=== PATIENT | female | born 1980 | race Caucasian/White ===

== ENCOUNTER 2016-11-18 11:44 | Outpatient (CLI) | payer OTHER ==
--- NOTE | 2016-11-19 06:59 | Diagnostic Imaging Report ---
GEOFF RICHARDSON~ [facility] [address] [facility].[address] [address] ~ ~ ~ ~ Report Submission Date: Nov 18, 2016 12:35:25 PM CDT Patient ~ Study Name: ALEXSANDER RUTLEDGE ~ Date: Nov 18, 2016 12:00:24 PM CDT ~ Modality Type: US Gender: F ~ Description: US RETROPERITONEAL LIMIT : 84 ~ Institution: [facility] Physician: GEOFF RICHARDSON ~ ~ ~ ~ Examination: Ultrasound kidneys History: Comparison exams: Findings: Right kidney measures 9.9 cm in length. Left kidney measures 10.7 cm in length. No evidence for cortical mass bilaterally. Right kidney demonstrates a 4 mm echogenic foci with posterior shadowing. Left kidney demonstrates a 4 mm echogenic structure within the inferior pole with posterior shadowing Impression: Bilateral renal calculi. No obstruction. No cortical mass/lesion. ~ Electronically signed on Nov 18, 2016 12:35:25 PM CDT by: Burke VILLAFUERTE
== END 2016-11-18 11:45 ==
LOC: RAD 11:44
PROVIDERS: ATTEND Family Medicine
DX: N20.0 Calculus of kidney (principal)
CPT/HCPCS: 76775

== ENCOUNTER 2016-11-23 14:41 | Outpatient (CLI) | payer OTHER ==
--- NOTE | 2016-11-23 15:18 | Diagnostic Imaging Report ---
[facility] [address] [facility] [address] [place], [place]. [address] Report Submission Date: Nov 23, 2016 3:15:13 PM CDT Patient Study Name: ALEXSANDER RUTLEDGE Date: Nov 23, 2016 2:49:30 PM CDT Modality Type: CT\SR Gender: F Description: CT ABD & PELVIS W/O CO : 84 Institution: [facility] Physician: ES FISCHER Examination: CT Abdomen/pelvis History: Right flank discomfort Comparison exams: None available Technique: CT Abdomen/pelvis without contrast protocol. Findings: Renal cortical margins are symmetric. Bilateral calyceal calcifications. Ureters described a normal course through the abdomen and pelvis. No abnormal dilation. No central calcifications. Ureterovesicular junctions are within normal limits. Pelvic phleboliths. Liver, spleen, adrenals, gallbladder and pancreas are without gross irregularity. Bowel unopacified limiting evaluation. Very mild inflammatory changes at the ileocecal valve. Prior hysterectomy. No mesenteric inflammatory changes or free fluid. Osseous structures demonstrate mild degenerative changes. Lung bases without infiltrate. Impression: Bilateral nephrolithiasis. No ureterolithiasis. Possible very mild inflammatory changes at the ileocecal valve. Exam was performed without contrast which limits sensitivity. Correlate with patient's symptomatology. Electronically signed on Nov 23, 2016 3:15:13 PM CDT by: Burke VILLAFUERTE
== END 2016-11-23 14:42 ==
LOC: RAD 14:41
PROVIDERS: ATTEND Physician Assistant
DX: R10.9 Unspecified abdominal pain (principal); R11.2 Nausea with vomiting, unspecified
CPT/HCPCS: 74176

== ENCOUNTER 2017-02-22 14:29 | Outpatient (CLI) | payer OTHER ==
[2017-02-22 15:15] LABS: eGFR (African) > 60; eGFR (Non-African) > 60
--- NOTE | 2017-02-22 16:49 | Diagnostic Imaging Report ---
[facility] [address] [facility].[address] [address] Report Submission Date: Feb 22, 2017 3:17:51 PM CDT Patient Study Name: ALEXSANDER RUTLEDGE Date: Feb 22, 2017 2:52:26 PM CDT Modality Type: CR Gender: F Description: CHEST : 84 Institution: [facility] Physician: GEOFF RICHARDSON - OP Examination: PA and lateral chest. History: Evaluate lung miller. Comparison exam: None provided Findings: PA lateral chest demonstrate a normal cardiac and mediastinal silhouette. Minimal haziness right middle lung. No other consolidation or effusion identified. No blunting of the costophrenic margins. Osseous structures are appropriate for age. Impression: Mild right middle lobe hazy infiltrate. No effusion. Electronically signed on Feb 22, 2017 3:17:51 PM CDT by: Burke VILLAFUERTE
== END 2017-02-22 14:30 ==
LOC: RT 14:29
PROVIDERS: ATTEND Family Medicine
DX: R00.2 Palpitations (principal); R07.9 Chest pain, unspecified
CPT/HCPCS: 36415; 71020; 80053; 84439; 84443; 84481; 85379

== ENCOUNTER 2017-07-08 12:30 | Outpatient (CLI) | payer OTHER ==
[2017-07-08 12:53] LABS: BASOPHILS % 0.6 (0.0-1.5); EOSINOPHILS % 1.2 % (0.0-6.8); MEAN CORPUSCULAR HEMOGLOBIN 29.2 pg (28.0-34.0); MEAN CORPUSCULAR VOLUME 87.6 fl (80.0-100.0); MONOCYTES % 2.6 % (0.0-11.0); NEUTROPHILS # 4.9 # k/uL (1.4-7.7)
[2017-07-08 13:15] LABS: eGFR (African) > 60; eGFR (Non-African) > 60
--- NOTE | 2017-07-08 15:30 | Diagnostic Imaging Report ---
SAMUEL SOUZA [facility] [address] [facility] [address] [place] [address]. [address] Report Submission Date: Jul 08, 2017 1:14:58 PM FILM CREW MEMBER Patient Study Name: ALEXSANDER RUTLEDGE Date: Jul 08, 2017 12:51:49 PM FILM CREW MEMBER Modality Type: CR Gender: F Description: CHEST : 84 Institution: [facility] Physician: SAMUEL SOUZA Examination: PA and lateral chest. History: PATIENT STATES SHARP CHEST PAINS RANDOMLY SINCE APR 2017 WITH OCCASSIONALY COUGH (Hx) / COUGH HX OF PNEUMONIA IN 2017 (DICOM Hx) / COUGH HX OF PNEUMONIA IN 2017 (Pt comments) Comparison exam: 22 February 2017 Findings: PA lateral chest demonstrate a normal cardiac and mediastinal silhouette. No focal infiltrate. No blunting of the costophrenic margins. Osseous structures are appropriate for age. Impression: No acute pulmonary process. Electronically signed on Jul 08, 2017 1:14:58 PM FILM CREW MEMBER by: Burke VILLAFUERTE
== END 2017-07-08 12:32 ==
LOC: LAB 12:30
PROVIDERS: ATTEND Physician Assistant
DX: R05 Cough (principal); R07.9 Chest pain, unspecified; Z87.01 Personal history of pneumonia (recurrent)
CPT/HCPCS: 71046; 80053; 85025

== ENCOUNTER 2017-09-13 12:28 | Outpatient (CLI) | payer OTHER ==
[2017-09-13 12:43] LABS: BASOPHILS % 0.7 (0.0-1.5); EOSINOPHILS % 1.7 % (0.0-6.8); MEAN CORPUSCULAR HEMOGLOBIN 29.7 pg (28.0-34.0); MEAN CORPUSCULAR VOLUME 86.5 fl (80.0-100.0); NEUTROPHILS # 4.6 # k/uL (1.4-7.7)
[2017-09-13 13:13] LABS: eGFR (Non-African) > 60
== END 2017-09-13 12:30 ==
LOC: LAB 12:28
PROVIDERS: ATTEND Physician Assistant
DX: R11.10 Vomiting, unspecified (principal)
CPT/HCPCS: 36415; 80053; 83690; 85025

== ENCOUNTER 2018-07-18 13:58 | Outpatient (CLI) | payer OTHER ==
--- NOTE | 2018-07-18 14:44 | Diagnostic Imaging Report ---
CARINA MADDOX [facility] [address] [facility] [address] [place] [address]. [id number] Report Submission Date: Jul 18, 2018 2:34:07 PM TRUCKMAN Patient Study Name: ALEXSANDER RUTLEDGE Date: Jul 18, 2018 2:05:00 PM TRUCKMAN Modality Type: CT\SR Gender: F Description: RENAL STONE : 84 Institution: [facility] Physician: CARINA MADDOX Exam: CT abdomen and pelvis without contrast. History: Right flank pain. History of renal stones. Axial images through the abdomen and pelvis without oral or IV contrast is submitted along with sagittal and coronal reformatted images. The visualized lower lung miller are clear without fidel consolidation or effusion. No free intraperitoneal air is identified. The liver, spleen and pancreas appear normal in attenuation. The adrenal glands are normal configuration. The abdominal aorta is of normal caliber. Is difficult to exclude periaortic lymphadenopathy without contrast material. Scattered punctate renal stones are seen in both renal collecting systems. However, no hydronephrosis or hydroureter is identified. No fidel ureteral stones are identified. Urinary bladder is contracted. No intrinsic filling defects are identified. The uterus appears to be retroverted and inhomogeneous in attenuation suggesting a myomatous uterus. A small amount of free cul-de-sac fluid is identified. Small cystic structure in the right adnexa may represent an ovarian cyst. The small bowel is of normal caliber. Air and stool seen throughout the large intestine. No inflammatory changes to the mesentery or ascites is identified. No bony abnormalities are identified. Impression: Small bilateral nonobstructing renal stones are identified. Retroverted uterus with some free cul-de-sac fluid identified and possible right ovarian cyst. Nonspecific bowel gas pattern. No inflammatory changes of the mesentery is noted. Electronically signed on Jul 18, 2018 2:34:07 PM TRUCKMAN by: Khalif VILLAFUERTE
== END 2018-07-18 14:00 ==
LOC: LAB 13:58
PROVIDERS: ATTEND Family Medicine
DX: N20.0 Calculus of kidney (principal); R10.2 Pelvic and perineal pain; R10.9 Unspecified abdominal pain
CPT/HCPCS: 74176

== ENCOUNTER 2018-07-25 13:43 | Outpatient (CLI) | payer OTHER ==
--- NOTE | 2018-07-25 14:51 | Diagnostic Imaging Report ---
CARINA MADDOX [facility] [address] [facility] [address] [place] [address]. [id number] Report Submission Date: Jul 25, 2018 2:50:31 PM TOPSTITCHER ZIGZAG Patient Study Name: ALEXSANDER RUTLEDGE Date: Jul 25, 2018 2:09:47 PM TOPSTITCHER ZIGZAG Modality Type: US Gender: F Description: US TRANSABDOMINAL PELVIS : 84 Institution: [facility] [place] [facility] Physician: CARINA MADDOX Transabdominal pelvic ultrasound History: Prior hysterectomy for endometriosis. Right-sided pelvic pain Transverse and longitudinal images were obtained through the pelvis transabdominally. The uterus is surgically absent. The right ovary measures 4.8 x 3.0 x 4.5 cm in greatest dimension with an ovarian volume 33.5 mL. There is a simple 2.5 cm cyst of the right ovary. Normal color flow and normal waveforms are present to the right ovary. The left ovary is not seen transabdominally. Impression: Nonvisualization of the left ovary. Status post hysterectomy. 2.5 cm simple cyst of the right ovary. Electronically signed on Jul 25, 2018 2:50:31 PM TOPSTITCHER ZIGZAG by: Vilma VILLAFUERTE
--- NOTE | 2018-07-25 14:54 | Diagnostic Imaging Report ---
CARINA MADDOX [facility] [address] [facility] [address] [place] [address]. [address] Report Submission Date: Jul 25, 2018 2:53:38 PM WAD BLANKING PRESS ADJUSTER Patient Study Name: ALEXSANDER RUTLEDGE Date: Jul 25, 2018 2:18:23 PM WAD BLANKING PRESS ADJUSTER Modality Type: US Gender: F Description: US TRANSVAGINAL PELVIS : 84 Institution: [facility] Physician: CARINA MADDOX Endovaginal pelvic ultrasound History: Right-sided pain. Prior hysterectomy for endometriosis Transverse and longitudinal images were obtained through the pelvis endovaginally. The left ovary is not seen. There is a simple cyst of the right ovary measuring 2 cm endovaginally. Small follicles of the right ovary are present as well. There is no free fluid in the pelvis. Endovaginally, the right ovary measures 4.1 x 3.1 x 3.3 cm with an ovarian volume of 21.4 mL. Impression: Status post hysterectomy and nonvisualization of the left ovary. 2 cm simple cyst of the right ovary. Otherwise, the right ovary is unremarkable. Electronically signed on Jul 25, 2018 2:53:38 PM WAD BLANKING PRESS ADJUSTER by: Vilma VILLAFUERTE
== END 2018-07-25 13:45 ==
LOC: RAD 13:43
PROVIDERS: ATTEND Family Medicine
DX: N83.201 Unspecified ovarian cyst, right side (principal)
CPT/HCPCS: 76830; 76856

== ENCOUNTER 2018-12-28 11:00 | Outpatient (CLI) | payer OTHER ==
[2018-12-28 11:10] LABS: BASOPHILS % 0.5 % (0.0-1.5); NEUTROPHILS # 3.3 # k/uL (1.4-7.7)
[2018-12-28 11:49] LABS: eGFR (Non-African) > 60
[2018-12-28 11:50] LABS: MAGNESIUM 2.1 mIU/l (1.6-2.3)
== END 2018-12-28 11:03 ==
LOC: LAB 11:00
PROVIDERS: ATTEND Nurse Practitioner Family
DX: R10.9 Unspecified abdominal pain (principal)
CPT/HCPCS: 36415; 80053; 83735; 85025

== ENCOUNTER 2019-04-19 11:31 | Outpatient (CLI) | payer OTHER ==
[2019-04-19 11:56] LABS: APPEARANCE,URINE CLEAR (CLEAR); COLOR,URINE YELLOW (YELLOW); OCCULT BLOOD,URINE NEGATIVE (NEGATIVE); UROBILINOGEN URINE 0.2 Eu (0.2-1.0)
[2019-04-19 11:57] LABS: BASOPHILS % 0.5 % (0.0-1.5); NEUTROPHILS # 4.8 # k/uL (1.4-7.7)
[2019-04-19 12:14] LABS: eGFR (Non-African) > 60
--- NOTE | 2019-04-19 12:54 | Diagnostic Imaging Report ---
PATIENT MR#: [id number] PATIENT PATIENT NAME: ALEXSANDER RUTLEDGE DATE OF : 1980 REFERRING PHYSICIAN: Jose Gaona EXAM DATE: 04/19/2019 ACCESSION NUMBER: [id number] EXAM DESCRIPTION: CT ABD PELVIS W/ CON CT abdomen and pelvis with contrast History: Right lower quadrant pain and low-grade fever for 12 days Technique: Helically acquired images were obtained from the hemidiaphragms to the pelvic floor follo wing IV but no oral contrast and comparison made with November 23, 2016. Findings: The gallbladder is contracted. The liver, spleen, adrenal glands, pancreas and the left k idney are unremarkable. There are 2 tiny calyceal stones of the right kidney. The abdominal aorta is normal i n caliber. Small and large bowel loops are normal in caliber. The appendix is normal, air-filled. There is a crenati ng cyst of the right ovary measuring 2 cm. There has been a hysterectomy. There is an unchanged bone island of lef t femoral head. Lung bases are clear. Impression: Two tiny calyceal stones of the right kidney. Normal appendix. 2 cm crenating cyst of the right ovary. Read by: Dr. Vilma Doherty Transcribed by: Transcribed Date: Electronically signed by: Dr. Vilma Doherty Date signed: 04/19/2019 12:53:33 PM
== END 2019-04-19 11:36 ==
LOC: LAB 11:31
PROVIDERS: ATTEND Family Medicine
DX: R10.31 Right lower quadrant pain (principal)
CPT/HCPCS: 36415; 74177; 80053; 81002; 85025; Q9967